=== PATIENT | male | born 1990 | race Caucasian/White ===

== ENCOUNTER 2022-10-16 14:55 | Emergency (ER) | payer BC, MEDICAID, SELFPAY ==
[2022-10-16] VITALS (21 sets, daily range): BP systolic 111–164; BP diastolic 59–127; PULSE 74–95; RESP 15–25; TEMP 36.8; O2SAT 90–100; BMI 31.6
--- NOTE | 2022-10-16 15:46 | XRR_ITS ---
PROCEDURE INFORMATION: Exam: XR Chest Exam date and time: 10/16/2022 4:22 PM Age: 32 years old Clinical indication: Pain; Chest pressure; Additional info: Cp, 1m off/on cp with dizziness. HTN TECHNIQUE: Imaging protocol: Radiologic exam of the chest. Views: 1 view. COMPARISON: No relevant prior studies available. FINDINGS: Lungs: Unremarkable. No consolidation. Pleural spaces: Unremarkable. No pleural effusion. No pneumothorax. Heart/Mediastinum: Unremarkable. No cardiomegaly. Bones/joints: Mild thoracic dextroscoliosis. Visualized osseous structures show no acute abnormality. XR/XR chest 1V 10825 IMPRESSION: No acute cardiopulmonary abnormality.
--- NOTE | 2022-10-16 15:46 | ECG_ITS ---
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 Measurements Intervals [place] Rate: 99 P: 46 AK: 108 QRS: 70 QRSD: 92 T: 37 QT: 311 QTc: 400 Interpretive Statements SINUS RHYTHM WITH SINUS ARRHYTHMIA WITH SHORT AK INTERVAL NONSPECIFIC ST & T-WAVE ABNORMALITY No previous ECG available for comparison Electronically Signed On 10-16-2022 23:25:58 CDT by Zhanna Castle M.D. [id number] f
--- NOTE | 2022-10-16 16:10 | PC.NURSE ---
This nurse unable to assume care for pt as nurse is with more critical pt. Charge nurse (Anca) informed.
--- NOTE | 2022-10-16 16:39 | ED_ITS ---
HPI - Chest Pain General: Chief Complaint: Chest Pain Stated Complaint: CHEST PAIN, DIZZYNESS Time Seen by Provider: 10/16/22 16:25 Source: patient Mode of arrival: ambulatory History of Present Illness: 32-year-old male presents emergency room complaining of chest pain. Patient has had the symptoms for over a month. They are worse when he lies down frequently worse after he eats. Radiates from the epigastrium up into the center of his chest. He has a history of hypertension he is been started on lisinopril. No radiation of pain in the neck arm or back no diaphoresis or associated shortness of breath. MD complaint: chest pain Onset (ago): month(s) (1) Timing of current episode: episodic Prior episodes: Yes Onset: during rest Pain location: substernal and epigastric Pain radiation: none Severity: mild Quality: aching and heaviness Relieving factors: nothing Exacerbating factors: supine Associated symptoms: Deny abdominal pain, diaphoresis, dyspnea, fever(s), leg edema, nausea, palpitations, sense of impending doom, syncope or vomiting Treatment prior to arrival: none Review of Systems Const: Denies: fever(s), chills or diaphoresis Card: Reports: chest pain; Denies: palpitations or syncope Resp: Denies: dyspnea GI: Denies: abdominal pain, nausea or vomiting : Denies: flank pain, dysuria, urinary frequency or urinary urgency Skin/Breast: Denies: rash or pruritus Physical Exam Const: COMMON NORMALS: no acute distress GENERAL APPEARANCE: cooperative and comfortable ORIENTATION/CONSCIOUSNESS: Yes awake, Yes oriented to person, Yes oriented to place and Yes oriented to time HENMT: COMMON NORMALS: normocephalic, atraumatic and hearing grossly normal bilaterally HEAD & SCALP: normocephalic and atraumatic Resp: COMMON NORMALS: normal respiratory effort, No retractions, No use of accessory muscles and clear to auscultation bilaterally AUSCULTATION: clear to auscultation bilaterally Cardio: COMMON NORMALS: regular rate, regular rhythm and No murmurs present (Cardio) RATE: regular rate RHYTHM: regular rhythm GI: COMMON NORMALS: Soft to palpation and No hepatosplenomegaly present AUSCULTATION: Yes normoactive bowel sounds PALPATION: Yes Soft to palpation, No Tenderness to palpation present (GI), No Guarding due to palpation present (GI) and Yes No hepatosplenomegaly present Extremity: COMMON NORMALS: normal to inspection, capillary refill normal, no clubbing, cyanosis or edema, no calf tenderness and no pedal edema Neuro: SENSORIUM/ORIENTATION: Yes oriented to person, Yes oriented to place and Yes oriented to time Skin: COMMON NORMALS: no rashes or lesions noted GENERAL SKIN EXAM: no rashes or lesions noted Course Vital Signs: Vital signs: Vital Signs Temperature 98.2 F 10/16/22 15:00 Pulse Rate 77 10/16/22 19:30 Respiratory Rate 18 10/16/22 19:30 Blood Pressure 111/59 10/16/22 19:30 Pulse Oximetry 97 10/16/22 19:30 Oxygen Delivery Me thod Room Air 10/16/22 17:00 MDM - Chest Pain Medical Decision Making EKG shows no acute ST changes. Cardiac enzymes negative. Patient has had symptoms for a full month. Recommend starting a proton 40 mg daily. Continue his lisinopril complete follow-up for stress test as scheduled return if has further problems. Based on his description of his symptoms suspect this is more GI driven. If symptoms worsen return to the emergency room. Medical Records I reviewed the patient's medical records. Lab Data I reviewed the patient's lab results. 10/16/22 16:48 10/16/22 16:48 Radiology Impressions Chest X-Ray 10/16/22 15:46 IMPRESSION: No acute cardiopulmonary abnormality. Laboratory Results WBC 8.5 10^3/uL (4.0-10.0) 10/16/22 16:48 RBC 5.23 10^6/uL (4.1-5.3) 10/16/22 16:48 Hgb 16.2 g/dL (11.7-16.6) 10/16/22 16:48 Hct 45.1 % (42.0-52.0) 10/16/22 16:48 MCV 86.2 fl (80-94) 10/16/22 16:48 MCH 31.0 pg (28.0-34.0) 10/16/22 16:48 MCHC 35.9 g/dL (30.0-36.0) 10/16/22 16:48 RDW 11.9 % (12.1-15.1) L 10/16/22 16:48 Plt Count 257 10^3/cmm (130-400) 10/16/22 16:48 MPV 9.3 fL (7.4-10.4) 10/16/22 16:48 Neut % (Auto) 64.5 % 10/16/22 16:48 Lymph % (Auto) 28.0 % 10/16/22 16:48 [place] % (Auto) 6.1 % 10/16/22 16:48 Eos % (Auto) 0.8 % 10/16/22 16:48 Baso % (Auto) 0.4 % 10/16/22 16:48 Neut # (Auto) 5.45 10^3/uL (1.8-7.7) 10/16/22 16:48 Lymph # (Auto) 2.4 10^3/uL (0.8-4.8) 10/16/22 16:48 [place] # (Auto) 0.5 10^3/uL (0.2-0.9) 10/16/22 16:48 Eos # (Auto) 0.1 10^3/uL (0.0-0.8) 10/16/22 16:48 Baso # (Auto) 0.0 10^3/uL (0.0-0.1) 10/16/22 16:48 Nucleated RBC % (auto) 0 % 10/16/22 16:48 Nucleated RBCs # 0.0 /100WBC 10/16/22 16:48 Sodium 140 mmol/L (136-145) 10/16/22 16:48 Potassium 3.5 mmol/L (3.5-5.1) 10/16/22 16:48 Chloride 100 mmol/L (98-107) 10/16/22 16:48 Carbon Dioxide 27 mmol/L (22-29) 10/16/22 16:48 Anion Gap 16.5 (5-19) 10/16/22 16:48 BUN 11 mg/dL (6-20) 10/16/22 16:48 Creatinine 0.9 mg/dL (0.7-1.2) 10/16/22 16:48 GFR Calculation 98.4 mL/min (90-130) 10/16/22 16:48 Glucose 81 mg/dL (65-115) 10/16/22 16:48 Calculated Osmolality 288 mOsm/kg (285-295) 10/16/22 16:48 Calcium 9.3 mg/dL (8.5-10.5) 10/16/22 16:48 Total Bilirubin 0.6 mg/dL (0.15-1.2) 10/16/22 16:48 AST 17 U/L (0-40) 10/16/22 16:48 ALT 26 U/L (0-41) 10/16/22 16:48 Alkaline Phosphatase 70 U/L (40-130) 10/16/22 16:48 Troponin T Baseline 14 ng/L (0-15) 10/16/22 16:48 Troponin T 120 Minute 6.00 ng/L (0-15) 10/16/22 18:04 Delta Troponin T -8.00 ABS# (0-10) L 10/16/22 18:04 Total Protein 7.2 g/dL (6.6-8.7) 10/16/22 16:48 Albumin 4.5 g/dL (3.5-5.2) 10/16/22 16:48 Globulin 2.7 g/dL (1.3-4.6) 10/16/22 16:48 TSH 1.34 uIU/mL (0.27-4.20) 10/16/22 16:48 Urine Color Dark yellow (Yellow) 10/16/22 17:47 Urine Appearance Clear (CLEAR) 10/16/22 17:47 Urine pH 6 (5-7) 10/16/22 17:47 Ur Specific [place] 1.020 (1.005-1.030) 10/16/22 17:47 Urine Protein Neg (Negative) 10/16/22 17:47 Urine Glucose (UA) Norm (Normal) 10/16/22 17:47 Urine Ketones 2+ (Negative) H 10/16/22 17:47 Urine Blood Neg (Negative) 10/16/22 17:47 Urine Nitrate Negative (Negative) 10/16/22 17:47 Urine Bilirubin 1+ (Negative) H 10/16/22 17:47 Urine Urobilinogen 1 mg/dL (Negative) H 10/16/22 17:47 Ur Leukocyte Esterase Negative (Negative) 10/16/22 17:47 Discharge Plan Discharge Patient Disposition: Home Clinical Impression: Chest pain due to gastrointestinal reflux disease Condition: Stable Prescriptions: New Protonix 40 mg tablet,delayed release (DR/EC) 40 mg PO DAILY 56 Days Qty: 90 0RF No Action lisinopril 20 mg tablet 20 mg PO QAM ibuprofen 200 mg Tablet 400 mg PO Q6H PRN (Reason: Pain) escitalopram oxalate 10 mg tablet 10 mg PO BEDTIME Discharge Orders: Discharge ED (Routine); Ordered 10/16/22 Ordered By: Chase Torres Discharge Diet: Usual diet Discharge Activity: Resume usual activity Patient Instructions: Diet for Stomach Ulcers and Gastritis (ED), GERD (Gastroesophageal Reflux Disease) (ED), Opioid Safety, Pain Management Activity Restrictions/Additional Instructions: Avoid carbonated beverages spicy foods and red meats. Start Protonix 40 mg daily follow-up with your primary care doctor return for worsening or change problems. Coding Level of Care Code ED [employer] Supervisor for Latosha Ledezma
[2022-10-16 16:58] LABS: Basophils % 0.4 %; Eosinophils # 0.1 10^3/uL (0.0-0.8); Eosinophils % 0.8 %; Hematocrit 45.1 % (42.0-52.0); Hemoglobin 16.2 g/dL (11.7-16.6); Lymphocytes # 2.4 10^3/uL (0.8-4.8); Mean Corpuscular HGB Conc 35.9 g/dL (30.0-36.0); Mean Corpuscular Volume 86.2 fl (80-94); Mean Platelet Volume 9.3 fL (7.4-10.4); Monocytes # 0.5 10^3/uL (0.2-0.9); Monocytes % 6.1 %; Neutrophils # 5.45 10^3/uL (1.8-7.7); Neutrophils % 64.5 %; Nucleated Red Blood Cells % 0 %; Platelet Count 257 10^3/cmm (130-400); Red Blood Count 5.23 10^6/uL (4.1-5.3); Red Cell Distribution Width 11.9 % (12.1-15.1); White Blood Count 8.5 10^3/uL (4.0-10.0)
[2022-10-16] MEDS: aspirin 81 mg Chew Tablet 324 MG PO (17:27)
[2022-10-16] MEDS: aluminum-mag hydrox-simethicon 30 ML, sucralfate oral liq 1 GM PO (17:29)
[2022-10-16 17:51] LABS: Troponin(5th) Baseline 14 ng/L (0-15)
[2022-10-16 17:56] LABS: Alanine Aminotransferase 26 U/L (0-41); Albumin Level 4.5 g/dL (3.5-5.2); Alkaline Phosphatase 70 U/L (40-130); Anion Gap 16.5 (5-19); Aspartate Amino Transferase 17 U/L (0-40); Blood Urea Nitrogen 11 mg/dL (6-20); Calcium 9.3 mg/dL (8.5-10.5); Carbon Dioxide 27 mmol/L (22-29); Chloride 100 mmol/L (98-107); Globulin 2.7 g/dL (1.3-4.6); Glomerular Filtration Rate 98.4 mL/min (90-130); Glucose 81 mg/dL (65-115); Osmolality Calculated 288 mOsm/kg (285-295); Potassium 3.5 mmol/L (3.5-5.1); Sodium 140 mmol/L (136-145); Thyroid Stimulating Hormone 1.34 uIU/mL (0.27-4.20); Total Bilirubin 0.6 mg/dL (0.15-1.2); Total Protein 7.2 g/dL (6.6-8.7)
[2022-10-16 17:59] LABS: Add Urine Microscopic? NO; Charge for UA Resulting for Rev
[2022-10-16 18:03] LABS: Blood Urine Neg (Negative); Glucose Urine UA Norm (Normal); Ketones Urine 2+ (Negative); Nitrate Urine Negative (Negative); Protein Urine Neg (Negative); Urine Appearance Clear (CLEAR); Urine Color Dark Yellow (Yellow); pH Urine 6 (5-7)
[2022-10-16 18:04] LABS: Bilirubin Urine 1+ (Negative); Leukocyte Esterase Urine Negative (Negative); Urobilinogen Urine 1 mg/dL (Negative)
--- NOTE | 2022-10-16 18:57 | ECG_ITS ---
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 Measurements Intervals [place] Rate: 86 P: 16 DC: 158 QRS: 48 QRSD: 92 T: 45 QT: 356 QTc: 428 Interpretive Statements SINUS RHYTHM Compared to ECG 10/16/2022 15:08:10 Sinus arrhythmia no longer present Short DC interval no longer present T-wave abnormality no longer present Electronically Signed On 10-16-2022 23:21:23 CDT by Zhanna Castle M.D. [id number]
== END 2022-10-16 19:22 | disposition home or self-care (01) ==
PROVIDERS: Physician Assistant; Emergency Provider Family Medicine
DX: K21.9 Gastro-esophageal reflux disease without esophagitis (principal)
CPT/HCPCS: 36415; 71045; 80053; 81003; 84443; 84484; 85025; 93005; 99285